=== PATIENT | female | born 1955 | race Caucasian/White ===

== ENCOUNTER 2025-04-20 13:18 | Emergency (ER) | payer MEDICARE ==
[~2025-04-20] VITALS: Ht 157.5 cm; Wt 38.6 kg
[2025-04-20 13:25] VITALS: TEMP 98.3
[2025-04-20] MEDS ORDERED: VENTOLIN HFA18 GM INH (14:27)
[2025-04-20] MEDS ORDERED: IBUPROFEN400 MG PO (14:27)
[2025-04-20] MEDS ORDERED: LEVOFLOXACIN500 MG PO (14:27)
[2025-04-20] MEDS ORDERED: PREDNISONE20 MG PO (14:27)
[2025-04-20 14:36] VITALS: PULSE 61; RESP 15; O2SAT 100
== END 2025-04-20 14:40 | disposition home or self-care (01) ==
LOC: EDBD 13:18 → ER 13:38
DX: R05.9 Cough, unspecified (principal); J44.1 Chronic obstructive pulmonary disease with (acute) exacerbation; G40.909 Epilepsy, unspecified, not intractable, without status epilepticus; F32.A Depression, unspecified; M54.9 Dorsalgia, unspecified; G89.29 Other chronic pain; Z85.118 Personal history of other malignant neoplasm of bronchus and lung; F17.210 Nicotine dependence, cigarettes, uncomplicated
CPT/HCPCS: 99283